=== PATIENT | female | born 1945 | race Native Hawaiian/Other Pacific Islander ===

== ENCOUNTER 2021-02-16 19:25 | Emergency (ER) | payer OTHER ==
[~2021-02-16] VITALS: Ht 167.6 cm; Wt 49.9 kg
[2021-02-16 19:25] VITALS: BP 144/78; TEMP 97.4
[2021-02-16 19:56] LABS: PLATELET COUNT 358 K/uL (152-353)
[2021-02-16 20:06] LABS: POTASSIUM 4.4 mmol/L (3.6-5.2)
[2021-02-16] MEDS ORDERED: CADUET10 MG/10 M PO (22:29)
[2021-02-16] MEDS ORDERED: DOCU SOFT100 MG PO (22:31)
[2021-02-16] MEDS ORDERED: LISI5TAB10 PO (22:35)
[2021-02-16] MEDS ORDERED: SM IBUPROFEN200 MG PO (22:35)
[2021-02-16] MEDS ORDERED: LORA0.5T17 PO (22:36)
[2021-02-16] MEDS ORDERED: SERT50TA PO (22:37)
== END 2021-02-16 20:45 | disposition still patient (30) ==
LOC: ED 19:25
PROVIDERS: Hospitalist
DX: F03.91 Unspecified dementia, unspecified severity, with behavioral disturbance (principal); F32.89 Other specified depressive episodes; Z11.52 Encounter for screening for COVID-19; Z04.6 Encounter for general psychiatric examination, requested by authority
CPT/HCPCS: 80053; 85027; 87635; 93005; 99283; U0003